=== PATIENT | male | born 1950 | race Caucasian/White ===

== ENCOUNTER → 2019-06-10 09:34 | Outpatient (CLI) | payer MEDICARE, SELFPAY ==
--- NOTE | 2019-06-10 09:59 | XR_ITS ---
PROCEDURE: XR CHEST 2V CLINICAL HISTORY: COUGH, ACUTE FEBRILE ILLNESS COMPARISON: No exams were available for comparison FINDINGS: The cardiomediastinal silhouette and pulmonary vascularity are within normal limits. The lungs are clear without infiltrates, suspicious nodules, or pleural effusions. No acute bony abnormalities. IMPRESSION: No acute findings. Dictated by: Kvng Hilton MD 06/10/2019 12:11 Electronically signed by Kvng Hilton MD in [place] 06/10/2019 12:11
[2019-06-10 10:09] LABS: Basophils % 0.4 % (0.1-2.0); Eosinophils # 0.1 K/mm3 (0.0-0.4); Eosinophils % 0.7 % (0.1-12.0); Hematocrit 47.7 % (42.0-52.0); Hemoglobin 16.3 g/dL (14.1-18.0); Lymphocytes # 0.8 K/mm3 (0.7-4.5); Lymphocytes % 11.2 % (10-50); Mean Corpuscular HGB Conc 34.3 g/dL (31.8-35.4); Mean Corpuscular Hemoglobin 30.3 pg (27.0-31.2); Mean Corpuscular Volume 88.5 fl (80-94); Mean Platelet Volume 7.8 fl (7.4-10.4); Monocytes # 0.4 K/mm3 (0.1-1.0); Monocytes % 5.1 % (1.7-9.3); Neutrophils # 5.9 K/mm3 (1.8-7.8); Neutrophils % 82.7 % (37.0-80.0); Platelet Count 189 K/mm3 (142-424); Red Blood Count 5.38 M/mm3 (4.60-6.20); Red Cell Distribution Width 12.5 % (11.5-17.5); White Blood Count 7.1 K/mm3 (4.8-10.8)
[2019-06-10 11:50] LABS: Chloride 94 mmol/L (98-107)
[2019-06-10 11:51] LABS: Potassium 4.2 mmoL/L (3.5-5.1); Sodium 134 mmol/L (136-145)
[2019-06-10 11:53] LABS: Blood Urea Nitrogen 14 mg/dl (9-20); Estimated Glomerular Filt Rate 96 ml/min (>60); GFR (African American) 116 ML/MIN (>60)
[2019-06-10 11:54] LABS: Alanine Aminotransferase 30 U/L (12-78); Albumin Level 4.4 g/dl (3.5-5.0); Albumin/Globulin Ratio 1.5 (1.1-1.8); Alkaline Phosphatase 75 U/L (38-126); Anion Gap 15.2 mEq/L (5-15); Aspartate Amino Transferase 45 U/L (17-59); Bilirubin,Total 0.8 mg/dl (0.2-1.3); Calcium 8.8 mg/dl (8.4-10.2); Carbon Dioxide 29 mmol/L (22.0-30.0); Glucose 177 mg/dl (74-100); Total Protein,Serum 7.4 g/dl (6.3-8.2)
== END ==
PROVIDERS: Visit Provider Internal Medicine Adolescent Medicine
DX: R50.9 Fever, unspecified (principal); R05 Cough; Z20.828 Contact with and (suspected) exposure to other viral communicable diseases
CPT/HCPCS: 36415; 71046; 80053; 85025

== ENCOUNTER → 2019-07-08 16:12 | Outpatient (CLI) | payer MEDICARE, SELFPAY ==
[2019-07-09 09:07] LABS: Covid-19 Nasal PCR Sendout Lex NOT DETECTED
--- NOTE | 2019-07-09 09:26 | PC.NURSE ---
NOTIFIED DR. VILLARREAL OF NEGATIVE COVID RESULTS. WILL FAX [facility] TO [facility] AND INFORM PATIENT.
--- NOTE | 2019-07-09 14:30 | PC.NURSE ---
Sariah notified patient of POSITIVE Covid-19 results, and further isolation instructions.
== END ==
PROVIDERS: Visit Provider Internal Medicine Adolescent Medicine
DX: Z03.818 Encounter for observation for suspected exposure to other biological agents ruled out (principal)

== ENCOUNTER → 2020-11-19 08:01 | Outpatient (CLI) | payer MEDICARE, SELFPAY ==
[2020-11-19 09:35] LABS: Chloride 103 mmol/L (98-107); Sodium 141 mmol/L (136-145)
[2020-11-19 09:37] LABS: Blood Urea Nitrogen 11 mg/dl (9-20); Estimated Glomerular Filt Rate 95 ml/min (>60); GFR (African American) 115 ML/MIN (>60)
[2020-11-19 09:38] LABS: Alanine Aminotransferase 24 U/L (12-78); Albumin Level 4.3 g/dl (3.5-5.0); Albumin/Globulin Ratio 1.5 (1.1-1.8); Alkaline Phosphatase 96 U/L (38-126); Aspartate Amino Transferase 25 U/L (17-59); Bilirubin,Total 1.6 mg/dl (0.2-1.3); Carbon Dioxide 27 mmol/L (22.0-30.0); Cholesterol 120 mg/dl (140-200); Globulin 2.8 g/dL (1.3-3.2); Total Protein,Serum 7.1 g/dl (6.3-8.2); Triglycerides 76 mg/dl (30-150); VLDL Cholesterol 15 mg/dL (0-40)
[2020-11-19 09:39] LABS: Calcium 8.8 mg/dl (8.4-10.2); Chol/HDL Ratio 2.3 (1-3.5); Glucose 152 mg/dl (74-100); HDL Cholesterol 53 mg/dl (40-60)
[2020-11-19 09:50] LABS: Direct LDL Cholesterol 51.66 mg/dL (100-129)
== END ==
PROVIDERS: Visit Provider Internal Medicine Adolescent Medicine
DX: Z86.39 Personal history of other endocrine, nutritional and metabolic disease (principal); Z79.899 Other long term (current) drug therapy
CPT/HCPCS: 36415; 80053; 80061

== ENCOUNTER 2021-11-11 08:29 | Emergency (ER) | payer MEDICARE, SELFPAY ==
[2021-11-11 08:49] VITALS: BP 158/81; PULSE 107; RESP 18; TEMP 36.7; O2SAT 96; BMI 25.0
--- NOTE | 2021-11-11 09:00 | HMH.EDUTC ---
[facility] [place] Clinical Impression: Sinusitis Qualifiers: Sinusitis location: unspecified location Chronicity: acute Recurrence: non-recurrent Qualified Code(s): J01.90 - Acute sinusitis, unspecified Disposition: Home, Self-Care Condition on Discharge: Good Instructions: Sinusitis, DI for Sinusitis Additional Instructions: Drink plenty of fluids. Take tylenol or ibuprofen for pain or fever. Take the medications as directed. Follow up with your regular doctor. GO TO THE ER FOR ANY WORSENING SYMPTOMS The cough medication (promethazine dm) will make you drowsy, so don't drive or operate heavy machinery after taking it. Prescriptions: Promethazine/Dextromethorphan [Promethazine-Dm Syrup] 5 ml PO Q6HP PRN #240 ml PRN Reason: Cough Transmission Status: Received by [id number] methylPREDNISolone [Medrol] 4 mg PO DIRECTED 6 Days #21 packet Transmission Status: Received by [id number] Azithromycin [Z-Ignacio 250mg Tab*] 250 mg PO UD DOSE PK #6 tab Transmission Status: Received by [id number] Referrals: Lexa Méndez MD [Primary Care Provider] - Time of Disposition: 09:04 Medical Decision Making - Medical Records Medical records reviewed: No: I reviewed the patient's medical records. - Franc Inquiry Pt receiving controlled substance: No Vital Signs: 11/11/21 08:49 11/11/21 09:06 Temperature 98.0 F 98.0 F Temperature Source Oral Pulse Rate 107 H Pulse Rate [Left] 107 H Respiratory Rate 18 18 Blood Pressure 158/81 H Blood Pressure [Right Arm] 158/81 H Blood Pressure Mean [Right Arm] 106 02 Sat by Pulse Oximetry 96 [facility] [place] - General Stated complaint: Sinus pain Time Seen by Provider: 11/11/21 09:00 Mode of Arrival: Ambulatory Source of Information: Patient Limitations: No Limitations Description of Symptoms (Recalled from Triage Doc. by RN): patient comes in with complaints of cough and congestion that has been ongoing for two days. patient states that he get sinus problems every year. patient also reports productive cough. HEENT Symptoms (Recalled from RN notes): No Resp Symptoms (Recalled from RN notes): Yes Skin Symptoms (Recalled from RN notes): No MS Symptoms (Recalled from RN notes): No Functional Status (Recalled from RN notes): n/a - History of Present Illness Provider Complaint: He states that for the past 3 days he has had sinus congestion, sinus drainage, malaise, scratchy sore throat. He states that he usually gets a sinus infection this time of every year. He denies any contact with someone with covid-19. - Related Data Home Medications Medication Instructions Recorded Confirmed atorvastatin 40 mg tablet 40 mg PO HS 09/04/20 02/04/21 Previous Rx's Medication Instructions Recorded azithromycin 250 mg tablet 250 mg PO QDAY 5 Days #6 tab 02/04/21 sptrvwkgvngwqpl-qkandffcsakxgzd-[id number] 5 ml PO Q4H PRN 7 Days #5 ml 02/04/21 2 mg-30 mg-10 mg/5 mL oral syrup Azithromycin [Z-Ignacio 250mg Tab*] 250 mg PO UD DOSE PK #6 tab 11/11/21 Promethazine/Dextromethorphan 5 ml PO Q6HP PRN #240 ml 11/11/21 [Promethazine-Dm Syrup] methylPREDNISolone [Medrol] 4 mg PO DIRECTED 6 Days #21 11/11/21 packet Allergies Allergy/AdvReac Type Severity Reaction Status Date / Time penicillin G Allergy Intermediate Verified 11/11/21 08:53 - Worker's Comp Is this a Worker's Comp case?: No [facility] History - Hepatitis A Screen Attestation statement:: This patient has been screened for Hepatitis A risk factors. I have reviewed the patient's past medical history: Yes Medical History: Reports:: Hyperlipidemia Other Surgeries: Yes: Colonoscopy, Other Amputation: No Fractures: No Comment: Cataract sx - Social History Smoking Status: Never smoker Alcohol Intake: never Substance Use Type: denies use Occupational Status: retired Family Hx:: No significant family history ROS Obtained: Yes All systems reviewed & no additional complaints
[2021-11-11 09:06] VITALS: BP 158/81; PULSE 107; RESP 18; TEMP 36.7
== END 2021-11-11 09:09 | disposition home or self-care (01) ==
PROVIDERS: Emergency Provider Nurse Practitioner Family; PCP Internal Medicine Adolescent Medicine
DX: J01.90 Acute sinusitis, unspecified (principal)
CPT/HCPCS: 99212; G0463

== ENCOUNTER 2023-07-24 11:10 | Outpatient (CLI) | payer MEDICARE, SELFPAY ==
--- NOTE | 2023-07-24 | XR_ITS ---
FINAL REPORT CLINICAL HISTORY: HAND ARTHRITIS COMPARISON: None FINDINGS: LEFT HAND: Three views show no evidence of acute displaced fracture or dislocation of the visualized bony architecture. There is moderate joint space narrowing in a distal distribution, particularly involving the interphalangeal joints and to a lesser extent to the MCP joints. No bony erosions are identified. IMPRESSION: Moderate joint space narrowing, particularly involving the interphalangeal joints and the MCP joints, consistent with changes of osteoarthritis. Reviewed, Interpreted and Dictated by Sydnee Perez MD Transcribed by Nicole Berman Authenticated and . [facility]
--- NOTE | 2023-07-24 | XR_ITS ---
FINAL REPORT CLINICAL HISTORY: arthritis COMPARISON: None FINDINGS: RIGHT HAND: Three views show no evidence of acute displaced fracture or dislocation of the visualized bony architecture. There is moderate joint space narrowing noted in a distal distribution, particularly involving the interphalangeal joints, to a lesser extent the MCP joints. No bony erosions are identified. IMPRESSION: Moderate joint space narrowing as described, likely secondary to osteoarthritic change. Reviewed, Interpreted and Dictated by Sydnee Perez MD Transcribed by Nicole Berman Authenticated and [facility]
== END 2023-07-24 23:59 | disposition home or self-care (01) ==
LOC: RAD 11:12
PROVIDERS: PCP Internal Medicine Adolescent Medicine; Visit Provider Internal Medicine Adolescent Medicine
DX: M19.041 Primary osteoarthritis, right hand (principal); M19.042 Primary osteoarthritis, left hand
CPT/HCPCS: 73130

== ENCOUNTER 2023-10-26 11:56 | Emergency (ER) | payer MEDICARE, SELFPAY ==
[2023-10-26 12:18] VITALS: BP 144/81; PULSE 71; RESP 14; TEMP 36.9; O2SAT 98; BMI 22.5
--- NOTE | 2023-10-26 12:32 | ED_ITS ---
Discharge Plan Disposition Patient Disposition: Home, Self-Care Condition: Good Prescriptions Prescriptions: New azithromycin [Zithromax] 250 mg tablet 250 mg PO UD DOSE PK Qty: 6 0RF Rx Instructions: Take two (2) tablets today, then one (1) tablet days #2 thru #5 benzonatate 100 mg capsule 100 mg PO TIDP PRN (Reason: Cough) Qty: 30 0RF methylprednisolone 4 mg Tablets,Dose Pack 4 mg PO DIRECTED 6 Days Qty: 21 0RF Rx Instructions: Take 1 pack as directed for 6 days No Action atorvastatin 40 mg tablet 40 mg PO HS azithromycin 250 mg tablet 250 mg PO QDAY 5 Days Qty: 6 0RF Rx Instructions: ii tabs day one and i tab days 2-5 jhrlolbvctckgbd-ieqpafopx-MF 2-30-10 mg/5 mL syrup 5 ml PO Q4H PRN (Reason: cough and congestion) 7 Days Qty: 5 0RF promethazine-DM 120 ML syrup 5 ml PO Q6HP PRN (Reason: Cough) Qty: 240 0RF azithromycin 250 MG tablet 250 mg PO UD DOSE PK Qty: 6 0RF Rx Instructions: Take two (2) tablets today, then one (1) tablet days #2 thru #5 methylprednisolone 4 MG tablets,dose pack 4 mg PO DIRECTED 6 Days Qty: 21 0RF Referrals Follow up/Referrals: Lexa Méndez MD [Primary Care Provider] - See instructions Activity Restrictions/Add. Instructions Additional Instructions/Restrictions: Drink plenty of fluids. Take tylenol or ibuprofen for pain or fever. Take the medications as directed. Follow up with your regular doctor. GO TO THE ER FOR ANY WORSENING SYMPTOMS Clinical Impressions Clinical Impression: Sinusitis Instructions Patient Instructions: Sinusitis, DI for Sinusitis Print Language Print Language: Slovak Discharge ED Provider: Loki Tello [facility] HPI General Stated complaint: cough, congestion, drainage Mode of Arrival: Ambulatory Source of Information: Patient Limitations: No Limitations Time Seen by Provider: 10/26/23 12:32 Description of Symptoms (Recalled from Triage Doc. by RN): pt c/o nasal congestion and drainage that is yellow. ongoing since 10/18 HEENT Symptoms (Recalled from RN notes): Yes Resp Symptoms (Recalled from RN notes): No Skin Symptoms (Recalled from RN notes): No MS Symptoms (Recalled from RN notes): No Functional Status (Recalled from RN notes): wnl History of Present Illness Provider Complaint: He states that for the past 2 days he has had worsening sinus congestion and ear pain. Related Data Home Medications ?Medication ?Instructions ?Recorded ?Confirmed atorvastatin 40 mg tablet 40 mg PO HS 09/04/20 02/04/21 Previous Rx's ?Medication ?Instructions ?Recorded azithromycin 250 mg tablet 250 mg PO QDAY resp infection 5 02/04/21 days #6 tabs wqzddgzgrkzimnw-tpxwycvdmhqpalj-HJ 5 ml PO Q4H PRN cough and 02/04/21 2 mg-30 mg-10 mg/5 mL oral syrup congestion 7 days #5 mL azithromycin 250 mg tablet 250 mg PO UD DOSE PK #6 tabs 11/11/21 methylprednisolone 4 mg tablets in 4 mg PO DIRECTED 6 days #21 11/11/21 a dose pack packets promethazine-DM 6.25 mg-15 mg/5 mL 5 ml PO Q6HP PRN Cough #240 mL 11/11/21 oral syrup azithromycin 250 mg tablet 250 mg PO UD DOSE PK #6 tabs 10/26/23 (Zithromax) benzonatate 100 mg capsule 100 mg PO TIDP PRN Cough #30 caps 10/26/23 methylprednisolone 4 mg tablets in 4 mg PO DIRECTED 6 days #21 tabs 10/26/23 a dose pack Allergies Allergy/AdvReac Type Severity Reaction Status Date / Time penicillin G Allergy Intermediate Verified 10/26/23 12:21 Worker's Comp Is this a Worker's Comp case?: No [facility] Disclaimer: The information contained in this section may have been updated after the patient was seen, as this information can be updated by other users. Social History Smoking Status: Never smoker alcohol intake: never substance use type: denies use current occupational status: retired Travel in the last 8 weeks: Inside the [facility] ([place]) ROS Obtained: Yes All systems reviewed & no additional complaints except as documented Constitutional Constitutional: Reports poor appetite Eyes Eyes: Reports system reviewed and no additional complaints, except as documented ENT Ears, Nose, Mouth, and Throat: Reports as per HPI Cardiovascular Cardiovascular: Reports system reviewed and no additional complaints, except as documented and Denies chest pain Respiratory Respiratory: Denies shortness of breath, Reports chest congestion, Reports cough, Denies stridor and Denies wheezing Gastrointestinal Gastrointestingal: Reports system reviewed and no additional complaints, except as documented; Denies abdominal pain, diarrhea or vomiting Musculoskeletal Musculoskeletal: Reports system reviewed and no additional complaints, except as documented and Denies arthralgias Integumentary/Breasts Skin/Breast: Reports system reviewed and no additional complaints, except as documented and Denies rash Neurologic Neurologic: Denies paresthesias Allergic/Immunologic Allergic/Immunologic: Denies wheezing Physical Exam General General appearance: alert and in no apparent distress Eye Eye exam: Present normal appearance, PERRL and EOMI ENT ENT exam: Present mucous membranes moist and normal external ear exam Expanded ENT Exam External ear exam: Present normal external inspection TM/Canal exam: Bilateral TM: erythema and bulging Nose exam: Absent sinus tenderness Nasal speculum exam: Bilateral: normal Mouth exam: Present normal external inspection; Absent drooling Teeth exam: Present normal inspection Throat exam: Present tonsillar erythema and tonsillomegaly Neck Neck exam: Present normal inspection, full ROM and trachea midline; Absent tenderness, lymphadenopathy or thyromegaly Chest Chest inspection: Present normal inspection and symmetric chest wall rise; Absent tenderness or rash Respiratory Respiratory exam: Present normal lung sounds bilaterally; Absent respiratory distress, wheezes, stridor or accessory muscle use Cardiovascular Cardiovascular exam: Present regular rate, normal rhythm and normal heart sounds Abdominal Exam Abdominal exam: Present soft; Absent distention, tenderness, guarding, rebound or rigidity Extremities Exam Extremities exam: Present normal inspection, full ROM and normal capillary refill; Absent tenderness or calf tenderness Back Exam Back exam: Present normal inspection and full ROM; Absent tenderness Neurological Exam Neurological exam: Present alert and oriented X3 Psychiatric Psychiatric exam: Present normal affect and normal mood Skin Skin exam: Present warm, dry, intact and normal color Lymphatic Lymphatic Findings: no adenopathy Medical Decision Making Medical Records Medical records reviewed: No I reviewed the patient's medical records. Franc Inquiry Pt receiving controlled substance: No Vital Signs: 10/26/23 12:18 Temperature 98.5 F Temperature Source Oral Pulse Rate [Left] 71 Respiratory Rate 14 Blood Pressure [Right Arm] 144/81 H Blood Pressure Mean [Right Arm] 102 Blood Pressure Source [Right Arm] Automatic Cuff Blood Pressure Position [Right Arm] Sitting 02 Sat by Pulse Oximetry 98 Oxygen Delivery Method Room Air
[2023-10-26 12:49] VITALS: BP 144/81; PULSE 71; RESP 14; TEMP 36.9
== END 2023-10-26 12:50 | disposition home or self-care (01) ==
PROVIDERS: Emergency Provider Nurse Practitioner Family; PCP Internal Medicine Adolescent Medicine
DX: J01.90 Acute sinusitis, unspecified (principal); H92.03 Otalgia, bilateral
CPT/HCPCS: 99212; 99214; G0463